=== PATIENT | male | born 1960 | race Two or more races ===

== ENCOUNTER 2019-01-11 12:28 | Day surgery (SDC) | payer MEDICARE, OTHER ==
[2019-01-11] VITALS (9 sets, daily range): BP systolic 92–113; BP diastolic 51–58
[~2019-01-11] VITALS: Ht 167.6 cm; Wt 113.4 kg
[2019-01-11] MEDS: Vigamox Opth Soln 3ml RIGHT EYE SCH ×3 (13:10→13:30)
[2019-01-11] MEDS: Cyclopentolate 1% Opth Sol 2ml RIGHT EYE SCH ×3 (13:11→13:30)
[2019-01-11] MEDS: Phenylephrine 2.5% Op 2ml Soln RIGHT EYE SCH ×3 (13:11→13:30)
[2019-01-11] MEDS: Flurbiprofen 0.03% Opth Sol 2.5ml RIGHT EYE SCH ×3 (13:17→13:30)
[2019-01-11 13:18] LABS: BASOPHILS % (AUTO) 1.7 % (0.0-2.0); EOSINOPHILS % (AUTO) 3.8 % (0.0-3.0); HEMATOCRIT 35.6 % (42.0-52.0); HEMOGLOBIN 11.8 G/DL (14.2-18.0); LYMPHOCYTES % (AUTO) 18.6 % (20.0-45.0); MEAN CORPUSCULAR VOLUME 91 FL (80-99); MONOCYTES % (AUTO) 8.9 % (1.0-10.0); NEUTROPHILS % (AUTO) 66.9 % (45.0-75.0); PLATELET COUNT 361 K/UL (150-450); WHITE BLOOD COUNT 9.5 K/UL (4.8-10.8)
[2019-01-11 13:35] LABS: ANION GAP 14 mmol/L (5-15); BLOOD UREA NITROGEN 65 mg/dL (7-18); CALCIUM 8.1 MG/DL (8.5-10.1); CARBON DIOXIDE 27 MMOL/L (21-32); CHLORIDE 93 MMOL/L (98-107); CREATININE 7.8 MG/DL (0.55-1.30); POTASSIUM 3.8 MMOL/L (3.5-5.1); SODIUM 134 MMOL/L (136-145)
[2019-01-11] MEDS ORDERED: RENA-VITE RX T1 EAC1 PO (13:46)
[2019-01-11] MEDS ORDERED: AMLODIPINE BESY10 MG ORAL (13:46)
[2019-01-11] MEDS ORDERED: FUROSEMIDE80 M1 ORAL (13:46)
[2019-01-11] MEDS ORDERED: ISOSORBIDE MONO60 M1 PO (13:46)
[2019-01-11] MEDS ORDERED: LOSARTAN POTAS100 MG ORAL (13:46)
[2019-01-11] MEDS ORDERED: NOVOLOG100 UNITS1 SQ (13:46)
[2019-01-11] MEDS ORDERED: CARVEDILOL12.5 MG ORAL (13:46)
[2019-01-11] MEDS ORDERED: ATORVASTATIN CA40 MG ORAL (13:46)
[2019-01-11] MEDS ORDERED: Glucagon 1mg Inj IV ONE (14:15)
[2019-01-11] MEDS ORDERED: Avastin 10mg Inj IVITRE ONE (15:00)
[2019-01-11] MEDS ORDERED: Pred Forte 1% Opth Susp 1ml RIGHT EYE SCH (15:00)
[2019-01-11] MEDS ORDERED: Lidocaine 2% MPF 5ml Vial INJ ONE (15:11)
[2019-01-11] MEDS ORDERED: EPINEPHrine 1mg/1ml Amp ONE (15:11)
[2019-01-11] MEDS ORDERED: Dexamethasone 4mg/ml vial ONE (15:12)
[2019-01-11] MEDS ORDERED: Kenalog-40 1ml Vial ONE (15:12)
[2019-01-11] MEDS ORDERED: Kenalog-10 5ml Inj ONE (15:12)
[2019-01-11] MEDS ORDERED: BSS 15ml BTL ONE (15:12)
[2019-01-11] MEDS ORDERED: BSS 500ml btl ONE (15:12)
[2019-01-11] MEDS ORDERED: Maxitrol Opth Oint 3.5gm ONE (15:12)
[2019-01-11] MEDS ORDERED: Tetracaine 0.5% Opth 4ml Soln ONE (15:13)
[2019-01-11] MEDS ORDERED: Sodium Hyaluronate 10 mg/ml 0.85ml ONE (15:13)
[2019-01-11] MEDS ORDERED: Bupivacaine 0.75% 30ml vial INJ ONE (15:13)
[2019-01-11] MEDS ORDERED: Indocyanine Green 25mg Inj INJ ONE (15:15)
[2019-01-11] MEDS ORDERED: fentaNYL 100 mcg/2 mL IV ONE (15:33)
[2019-01-11] MEDS ORDERED: Propofol 200mg/20ml IV ONE (15:34)
--- NOTE | 2019-01-11 15:44 | Pre-Procedure Note/Attestation ---
Pre-Procedure Note/Attestation Complete Prior to Procedure Planned Procedure: right Procedure Narrative: PPV, removal of retained lens material, Avastin, Endolaser Indications for Procedure Pre-Operative Diagnosis: Retained lens material after cataract surgery, vitreous hemorrhage RIght eye Attestation I attest that I discussed the nature of the procedure; its benefits; risks and complications; and alternatives (and the risks and benefits of such alternatives ), prior to the procedure, with the patient (or the patient's legal member services representative). I attest that, if there was a reasonable possibility of needing a blood transfusion, the patient (or the patient's legal member services representative) was given the [facility] standardized written summary, pursuant to the Jah Ocosta Blood Safety Act ([place] Health and Safety Code # 1645, as amended). I attest that I re-evaluated the patient just prior to the surgery and that there has been no change in the patient's H&P, except as documented below: Pelon Richey MD Jan 11, 2019 15:44
[2019-01-11] MEDS ORDERED: acetaZOLAMIDE 500mg Sequel ORAL ONE (15:45)
[2019-01-11] MEDS ORDERED: D5 1/2NS 1000ml IV ONE (16:00)
[2019-01-11] MEDS ORDERED: Sterile Water Irrig 1000ml IRRIG ONE (16:00)
[2019-01-11] MEDS ORDERED: NS Irrig 1000ml ONE (16:00)
--- NOTE | 2019-01-11 16:16 | Anethesia Preoperative Eval ---
Anesthesia Pre-op PMH/ROS General Date of Evaluation: Jan 11, 2019 Time of Evaluation: 15:32 Anesthesiologist: Juan Alberto ASA Score: ASA 3 Mallampati Score Class I : Soft palate, uvula, fauces, pillars visible Class II: Soft palate, uvula, fauces visible Class III: Soft palate, base of uvula visible Class IV: Only hard plate visible Mallampati Classification: Class III Surgeon: Kaiden Diagnosis: R eye vitreal hemorrhage Surgical Procedure: R eye PPV removal of lense fragments Anesthesia History: none Family History: no anesthesia problems Allergies: Coded Allergies: No Known Allergies (Unverified , 01/11/19) Medications: see eMAR Patient NPO?: Yes NPO Date: Jan 11, 2019 NPO Time: 08:00 Past Medical History Cardiovascular: Reports: HTN; Denies: CAD, CO, valve dz, arrhythmia, other Pulmonary: Reports: SHI Gastrointestinal/Genitourinary: Reports: GERD, ESRD - on HD last session 01/09; Denies: CRI, other Neurologic/Psychiatric: Reports: depression/anxiety; Denies: dementia, CVA, TIA, other Endocrine: Reports: DM; Denies: hypothyroidism, steroids, other HEENT: Reports: cataract (L), glaucoma; Denies: cataract (R), [place] (L), [place] (R), other Hematology/Immune: Reports: anemia; Denies: DVT, bleeding disorder, other Musculoskeletal/Integumentary: Reports: DJD, edema - gr. 3 bilateral LE Other: obesity PMH Narrative: as above PSxH Narrative: L arm A-V shunt Anesthesia Pre-op Phys. Exam Physician Exam Last Vital Signs Date Time Temp Pulse Resp B/P (MAP) Pulse Ox O2 Delivery O2 Flow Rate FiO2 01/11/19 13:25 Room Air 01/11/19 13:20 97.7 59 18 113/58 96 Constitutional: NAD Neurologic: CN 2-12 intact Cardiovascular: RRR Respiratory: other - diminished breath sounds bilaterally L>R Gastrointestinal: other - obesity Airway Exam Mallampati Score: Class III MO: limited Neck: short ROM: limited Teeth: missing Dentures: no upper, no lower Anesthesia Pre-op A/P Labs Hematology Test 01/11/19 13:10 White Blood Count 9.5 K/UL (4.8-10.8) Red Blood Count 3.90 M/UL (4.70-6.10) L Hemoglobin 11.8 G/DL (14.2-18.0) L Hematocrit 35.6 % (42.0-52.0) L Mean Corpuscular Volume 91 FL (80-99) Mean Corpuscular Hemoglobin 30.4 PG (27.0-31.0) Mean Corpuscular Hemoglobin Concent 33.3 G/DL (32.0-36.0) Red Cell Distribution Width 13.0 % (11.6-14.8) Platelet Count 361 K/UL (150-450) Mean Platelet Volume 7.8 FL (6.5-10.1) Neutrophils (%) (Auto) 66.9 % (45.0-75.0) Lymphocytes (%) (Auto) 18.6 % (20.0-45.0) L Monocytes (%) (Auto) 8.9 % (1.0-10.0) Eosinophils (%) (Auto) 3.8 % (0.0-3.0) H Basophils (%) (Auto) 1.7 % (0.0-2.0) Chemistry Test 01/11/19 13:10 Sodium Level 134 MMOL/L (136-145) L Potassium Level 3.8 MMOL/L (3.5-5.1) Chloride Level 93 MMOL/L (98-107) L Carbon Dioxide Level 27 MMOL/L (21-32) Anion Gap 14 mmol/L (5-15) Blood Urea Nitrogen 65 mg/dL (7-18) H Creatinine 7.8 MG/DL (0.55-1.30) H Estimat Glomerular Filtration Rate 7.2 mL/min (>60) Glucose Level 61 MG/DL (74-106) L Calcium Level 8.1 MG/DL (8.5-10.1) L Studies Pre-op Studies: EKG - SR R BBB Risk Assessment & Plan Assessment: ASA 3 Plan: MAC with retrobulbar block Status Change Before Surgery: Alejandro Pa MD Jan 11, 2019 16:16
[2019-01-11] MEDS ORDERED: DiphenhydrAMINE 50mg/ml Inj IVP PRN (16:30)
[2019-01-11] MEDS ORDERED: fentaNYL 100 mcg/2 mL IV PRN (16:30)
--- NOTE | 2019-01-11 16:48 | Immediate Post-Op Evaluation ---
Immediate Post-Op Evalulation Immediate Post-Op Evalulation Procedure: R eye PPV extraction of lense fragment laser treatment Date of Evaluation: Jan 11, 2019 Time of Evaluation: 16:46 IV Fluids: 400 Blood Products: none Estimated Blood Loss: min Urinary Output: none Blood Pressure Systolic: 97 Blood Pressure Diastolic: 53 Pulse Rate: 56 Respiratory Rate: 22 O2 Sat by Pulse Oximetry: 96 Temperature (Fahrenheit): 97.6 Pain Score (1-10): 1 Nausea: No Vomiting: No Complications none Patient Status: reacts, patent, none Hydration Status: adequate Alejandro Avendano MD Jan 11, 2019 16:48
[2019-01-12 09:47] VITALS: BP 116/54
--- NOTE | 2019-01-12 09:47 | 48 Hour Post Anesthesia Eval ---
Post Anesthesia Evaluation Procedure: R eye PPV extraction of lense fragment laser treatment Date of Evaluation: Jan 11, 2019 Time of Evaluation: 17:20 Blood Pressure Systolic: 116 0: 54 Pulse Rate: 62 Respiratory Rate: 20 Temperature (Fahrenheit): 97.6 O2 Sat by Pulse Oximetry: 98 Airway: patent Nausea: No Vomiting: No Pain Intensity: 1 Hydration Status: adequate Cardiopulmonary Status: stable Mental Status/LOC: patient returned to baseline Follow-up Care/Observations: n/a Post-Anesthesia Complications: none Follow-up care needed: ready to discharge Alejandro Avendano MD Jan 12, 2019 09:47
--- NOTE | 2019-01-12 13:51 | Pre-op HX & Phy Repo 2 SIG ---
DATE OF ADMISSION: 01/11/2019 PRESURGICAL INTERNAL MEDICINE HISTORY AND PHYSICAL: REASON FOR EVALUATION: I was asked by Dr. Pelon Richey to see this 58-year-old male, going for emergency surgery at [facility] on the right eye. The patient has retinal detachment, right eye. The patient was evaluated. Chart was reviewed. PAST MEDICAL HISTORY AND REVIEW OF SYSTEMS: Remarkable for insulin-dependent diabetes mellitus, history of hypertension, coronary heart disease. Denies history of heart attack. History of end-stage chronic renal disease and hemodialysis. Last dialysis was done 01/09/2019. The patient has obesity and bronchial asthma. The patient denies history of thyroid problem. No history of prostate problem. No history of GI bleeding or hepatitis. No history of stroke. Friday, the patient seen in the emergency room from [facility] for severe headache. In ER, CT scan of the brain negative for new bleeding or stroke. There is an old stroke an year ago. PAST SURGICAL HISTORY: Left eye cataract and left arm AV shunt for dialysis. FAMILY HISTORY: Mother, unknown. when the patient was a young boy. Father was alcoholic and from complication of alcoholism. ALLERGIES: Not known. MEDICATIONS: Include losartan, hydrochlorothiazide, Nephro-Klaus, isosorbide, Lantus 30 units twice a day, NovoLog 30 units in the morning, atorvastatin, and eye drops. SOCIAL HISTORY: The patient smoked in the past. Also alcohol use in the past. PHYSICAL EXAMINATION: VITAL SIGNS: Blood pressure 113/52, temperature 97.9, pulse 62, O2 saturation 96% on room air. The patient uses inhaler of unknown name at home approximately 3 times at night. SKIN: Both legs, ankle dermatitis and edematous. LYMPH NODES: Not enlarged. HEENT: Head normocephalic. Ears, clear. Eyes, full description per Dr. Pelon Richey. Mouth, upper teeth denture out. NECK: No jugular vein distention. Carotids artery +2. Trachea midline. CHEST: No deformity or asymmetry. LUNGS: Clear. No rales or rhonchi. HEART: Sinus rhythm. No ectopy. No murmur. No S3 or S4. ABDOMEN: Soft, obese. Liver and spleen not enlarged. No rebound. EXTREMITIES: Has no calf tenderness. Left arm AV shunt. +3 ankle bilateral edema and skin dermatitis. GENITOURINARY TRACT: Denies dysuria. On hemodialysis 4 times a week. NEUROLOGIC: No tremor. No nystagmus. LABORATORY AND DIAGNOSTIC DATA: Blood sugar fingerstick 61. The patient's IV changed to D5. Blood sugar in half hour started to elevate to 69. The patient was given 1 mg glucagon IV push and his blood sugar 73 prior to surgery. Electrocardiogram done shows normal sinus rhythm, 68 per minute, right bundle-branch block. The patient's last p.o. intake was 8 a.m. Potassium 3.8. White blood cells 9.5, hemoglobin 11.8, hematocrit 35.6. Sodium 134, potassium 3.8, glucose 61, and calcium 8.1. IMPRESSION: 1. Retinal detachment, right eye. 2. Hypertension, controlled. 3. Insulin-dependent diabetes mellitus. 4. Anemia. 5. Congestive heart failure. PLAN: Pars plana vitrectomy 23 G, right eye per Dr. Pelon Richey. CONCLUSION: The patient has insulin-dependent diabetes mellitus. His blood sugar was low. The patient was given glucagon 1 mg to correct blood sugar. The patient is on hemodialysis. He has anemia. The patient's condition optimized for surgery. Thank you very much, Dr. Richey, for privilege to participate in presurgical care of this interesting patient. Kehinde Go M.D. DR: MARIA R JOB#: [id number] CC:
--- NOTE | 2019-01-12 18:00 | Operative Note - Dictated ---
DATE OF OPERATION: 01/11/2019 PREOPERATIVE DIAGNOSIS: Dense vitreous hemorrhage with retained lens material, right eye. PROCEDURES PERFORMED: 1. Pars plana vitrectomy. 2. Membrane dissection. 3. Endolaser. 4. Avastin injection, right eye. SURGEON: Pelon Richey M.D. INDEPENDENT TRADER: None. ANESTHESIA: Local with sedation. ANESTHESIOLOGIST: Alejandro Avendano M.D. JUSTIFICATION FOR SURGERY: This 58-year-old male underwent cataract surgery two days prior complicated by rupture of the posterior capsule and loss of significant cortical material as well as dense vitreous hemorrhage. No implant was placed. He had issues with pressure. BRIEF NOTE: The patient was brought to the operating room, placed on operating room table in supine position. After a time-out was performed and agreed upon by the staff, and initial monitoring secured by Dr. Avendano, retrobulbar and Van Lint blocks were given in standard way. He was prepped and draped in the normal manner. A lid speculum inserted into right eye. Vitrectomy was begun posterior to the iris plane. Dense vitreous blood was removed as well as residual capsular remnants. The patient was not extremely cooperative and had difficulty lying flat but the procedure was continued. Using a BIOM instrument, the wide-angle view was noted and the retina was noted not to be detached. There was an area of a traction along the supratemporal arcade where the posterior hyaloid was attached. This was dissected and flushed with the retina. Vitrectomy was carried out further peripherally as well as possible because of the patient's movement but a reasonably clear view was obtained and only a moderate vitreous skirt was left behind. There appeared to be a faint preretinal membrane but because of the inability of the patient to hold still, this was not addressed. Endolaser was then brought to the eye and a power of 0.3 cortez, duration of 0.2 seconds, the preexisting laser was augmented with roughly 316 spots. The area of maximal traction was surrounded with laser along the superotemporal arcade. Scleral depression showed no peripheral breaks or detachments. The two superior cannulas were removed from the eye and the wounds noted to be self-sealing. The infusion line was disconnected and Avastin 1.25 mg, was injected through the infusion line. The eye was reinflated and this cannula was also removed and the wound here noted to be self-sealing as well. Corneal epithelium has to be removed because of necessity of better visualization during the procedure. At the conclusion, subconjunctival Decadron and gentamicin were injected inferiorly and topical atropine drops, prednisolone drops, moxifloxacin drops, and Maxitrol ointment were instilled. The eye was patched and shielded and the patient taken to recovery in excellent condition. There were no complications. Pelon Richey M.D. DR: Panfilo JOB#: [id number] CC: Pelon Richey M.D.; Fax#: [phone]
--- NOTE | 2019-01-18 13:07 | Cardiology Report ---
APPROVED REPORT EKG Measurement Heart [id number] IN 190P [id number] Normal sinus rhythm Right bundle branch block Abnormal ECG
== END 2019-01-11 18:00 | disposition home or self-care (01) ==
LOC: SUR 12:28
DX: H43.11 Vitreous hemorrhage, right eye (principal); H59.021 Cataract (lens) fragments in eye following cataract surgery, right eye; I50.9 Heart failure, unspecified; D64.9 Anemia, unspecified; Z79.4 Long term (current) use of insulin; I45.10 Unspecified right bundle-branch block; Z87.891 Personal history of nicotine dependence; E10.22 Type 1 diabetes mellitus with diabetic chronic kidney disease; I13.2 Hypertensive heart and chronic kidney disease with heart failure and with stage 5 chronic kidney disease, or end stage renal disease; N18.6 End stage renal disease; G47.33 Obstructive sleep apnea (adult) (pediatric); K21.9 Gastro-esophageal reflux disease without esophagitis; Z99.2 Dependence on renal dialysis
CPT/HCPCS: 36415; 67039; 80048; 82962; 85025; 93005; J0171; J1100; J2704; J3010; J3470; J3490; J9035; 94003; 94150